=== PATIENT | male | born 1985 | race Caucasian/White ===

== ENCOUNTER → 2024-08-24 | Outpatient (CLI) | payer OTHER ==
[2024-08-24 15:23] LABS: BASO % 0.8 % (0.0-1.0); EOS # 0.2 10^3/uL (0.0-0.5); HEMATOCRIT 32.9 % (42.0-52.0); LYMPH # 1.3 10^3/uL (1.5-5.0); LYMPH % 34.4 % (24.0-44.0); MEAN CORPUSCULAR HGB CONC 33.4 g/dl (32.0-36.5); MEAN CORPUSCULAR VOLUME 95.6 fl (80.0-96.0); MONO # 0.3 10^3/uL (0.0-0.8); NEUTROPHILS # 1.8 10^3/uL (1.5-8.5); NEUTROPHILS % 48.7 % (36.0-66.0); PLATELET COUNT, AUTOMATED 213 10^3/uL (150-450); RED BLOOD COUNT 3.44 10^6/uL (4.30-6.10); WHITE BLOOD COUNT 3.7 10^3/uL (4.0-10.0)
[2024-08-24 15:50] LABS: ALBUMIN 4.1 G/DL (3.2-5.2); ALKALINE PHOSPHATASE 141 U/L (40-129); ALT/SGPT 84 U/L (7.0-40); AST/SGOT 30 U/L (<34); BILIRUBIN,DIRECT 0.6 MG/DL (<0.4); BILIRUBIN,TOTAL 1.5 MG/DL (0.3-1.2); IRON (FE) 72 UG/DL (65-175); TOTAL PROTEIN 7.9 G/DL (5.7-8.2)
[2024-08-24 15:51] LABS: FERRITIN 270.5 NG/ML (10.5-307.3); IMMUNOGLOBULIN G 1545 MG/DL (650-1600)
[2024-08-24 15:52] LABS: HEPATITIS B SURFACE ANTIBODY POSITIVE (POSITIVE)
[2024-08-24 16:25] LABS: HEPATITIS B CORE ANTIBODY IGM NEGATIVE (NEGATIVE)
[2024-08-24 20:48] LABS: HIV 1&2 SCREEN REACTIVE (NEGATIVE)
[2024-08-26 11:17] LABS: ALPHA 1 ANTITRYPSIN 156 mg/dL (83-199)
[2024-08-26 13:12] LABS: HEPATITIS B CORE ANTIBODY IGG REACTIVE (NON-REACTIVE)
[2024-08-29 14:18] LABS: HIV 1 AB POSITIVE (NEGATIVE); HIV 2 AB NEGATIVE (NEGATIVE); HIV AG/AB, 4TH GEN REPEATEDLY REACTIVE (NON-REACTIVE)
== END ==
LOC: M PLALAB 11:40
PROVIDERS: ATTEND Internal Medicine Hematology
DX: D58.1 Hereditary elliptocytosis (principal)

== ENCOUNTER → 2024-08-25 | Outpatient (REF) | payer OTHER | LOC: M SFHCPLAZ 12:09 | PROVIDERS: ATTEND Internal Medicine Hematology | DX: Z53.9 Procedure and treatment not carried out, unspecified reason (principal) ==

== ENCOUNTER → 2024-09-01 | Outpatient (CLI) | payer OTHER ==
[2024-09-01 13:05] LABS: APPEARANCE, URINE CLEAR (CLEAR); BACTERIA, URINE AUTO NEGATIVE (NEGATIVE); BILIRUBIN, URINE AUTO NEGATIVE (NEGATIVE); BLOOD, URINE BLOOD NEGATIVE (NEGATIVE); COLOR, URINE AMBER (YELLOW); GLUCOSE, URINE (UA) AUTO NEGATIVE (NEGATIVE); KETONE, URINE AUTO NEGATIVE (NEGATIVE); LEUKOCYTE ESTERASE, URINE AUTO NEGATIVE (NEGATIVE); MUCUS, URINE SMALL (NEGATIVE); NITRITE, URINE AUTO NEGATIVE (NEGATIVE); PROTEIN, URINE AUTO NEGATIVE (NEGATIVE); RBC, URINE AUTO 0 /HPF (0-3); SPECIFIC GRAVITY URINE AUTO 1.023 (1.002-1.035); SQUAMOUS EPITHELIAL CELL UR AU 3 /HPF (0-6); WBC, URINE AUTO 1 /HPF (0-3)
[2024-09-01 13:10] LABS: ALBUMIN 4.1 G/DL (3.2-5.2); ALKALINE PHOSPHATASE 130 U/L (40-129); ALT/SGPT 59 U/L (7.0-40); AST/SGOT 27 U/L (<34); BILIRUBIN,TOTAL 1.9 MG/DL (0.3-1.2); BLOOD UREA NITROGEN 15 MG/DL (9-23); CALCIUM LEVEL 9.7 MG/DL (8.5-10.1); CARBON DIOXIDE LEVEL 30 MMOL/L (20-31); CHLORIDE LEVEL 107 MMOL/L (98-107); CREATININE FOR GFR 0.73 MG/DL (0.70-1.30); GLOMERULAR FILTRATION RATE > 60.0 (>60); GLUCOSE, FASTING 77 MG/DL (60-100); SODIUM LEVEL 142 MMOL/L (136-145); TOTAL PROTEIN 7.9 G/DL (5.7-8.2)
[2024-09-01 13:25] LABS: HEPATITIS B SURFACE ANTIGEN NEGATIVE (NEGATIVE)
[2024-09-01 14:41] LABS: GC DNA AMPLIFICATION NEGATIVE (NEGATIVE)
[2024-09-02 12:16] LABS: HEPATITIS A IgG TOTAL REACTIVE (NON-REACTIVE)
[2024-09-02 16:11] LABS: % CD4+ LYMPHS 21.8 % (30.8-58.5); ABSOLUTE CD4 HELPER 283 /uL (359-1519); BASOPHILS 1 % (Not Estab.); COMMENTS FOR T-CELL CD4 Note: (.); EOSINOPHILS 5 % (Not Estab.); EOSINOPHILS ABSOLUTE 0.2 x10E3/uL (0.0-0.4); HCT 32.1 % (37.5-51.0); HGB 11.5 g/dL (13.0-17.7); LYMPHOCYTES 36 % (Not Estab.); LYMPHOCYTES ABSOLUTE 1.3 x10E3/uL (0.7-3.1); MCHC 35.8 g/dL (31.5-35.7); MCV 92 fL (79-97); MONOCYTES 7 % (Not Estab.); MONOCYTES ABSOLUTE 0.3 x10E3/uL (0.1-0.9); NEUTROPHILS 50 % (Not Estab.); NEUTROPHILS ABSOLUTE 1.9 x10E3/uL (1.4-7.0); PLT 225 x10E3/uL (150-450); RBC 3.49 x10E6/uL (4.14-5.80); RDW 19.7 % (11.6-15.4); WBC 3.7 x10E3/uL (3.4-10.8)
[2024-09-05 10:57] LABS: HIV-1 RNA PCR QUANT 2 210000 copies/mL (NOT DETECTED); HIV-1 RNA PCR QUANT 3 5.32 (NOT DETECTED)
== END ==
LOC: M PLALAB 10:54
PROVIDERS: ATTEND Internal Medicine Infectious Disease
DX: B20 Human immunodeficiency virus [HIV] disease (principal)

== ENCOUNTER → 2024-10-04 | Outpatient (CLI) | payer OTHER ==
[2024-10-04 14:45] LABS: GC DNA AMPLIFICATION NEGATIVE (NEGATIVE)
[2024-10-04 15:06] LABS: ALBUMIN 4.3 G/DL (3.2-5.2); ALKALINE PHOSPHATASE 116 U/L (40-129); ALT/SGPT 154 U/L (7.0-40); AST/SGOT 67 U/L (<34); BLOOD UREA NITROGEN 20 MG/DL (9-23); CALCIUM LEVEL 9.8 MG/DL (8.5-10.1); CARBON DIOXIDE LEVEL 30 MMOL/L (20-31); CHLORIDE LEVEL 104 MMOL/L (98-107); CREATININE FOR GFR 0.88 MG/DL (0.70-1.30); GLOMERULAR FILTRATION RATE > 60.0 (>60); GLUCOSE, FASTING 84 MG/DL (60-100); POTASSIUM SERUM 4.7 MMOL/L (3.5-5.1); SODIUM LEVEL 139 MMOL/L (136-145); TOTAL PROTEIN 8.3 G/DL (5.7-8.2)
[2024-10-05 14:08] LABS: % CD4+ LYMPHS 22.7 % (30.8-58.5); ABSOLUTE CD4 HELPER 363 /uL (359-1519); BASOPHILS 1 % (Not Estab.); EOSINOPHILS 3 % (Not Estab.); EOSINOPHILS ABSOLUTE 0.1 x10E3/uL (0.0-0.4); HCT 31.6 % (37.5-51.0); HGB 10.9 g/dL (13.0-17.7); LYMPHOCYTES 37 % (Not Estab.); LYMPHOCYTES ABSOLUTE 1.6 x10E3/uL (0.7-3.1); MCH 31.9 pg (26.6-33.0); MCHC 34.5 g/dL (31.5-35.7); MCV 92 fL (79-97); MONOCYTES 10 % (Not Estab.); MONOCYTES ABSOLUTE 0.4 x10E3/uL (0.1-0.9); NEUTROPHILS 48 % (Not Estab.); NEUTROPHILS ABSOLUTE 2.1 x10E3/uL (1.4-7.0); PLT 263 x10E3/uL (150-450); RBC 3.42 x10E6/uL (4.14-5.80); RDW 19.7 % (11.6-15.4); WBC 4.3 x10E3/uL (3.4-10.8)
[2024-10-06 11:16] LABS: HIV-1 RNA PCR QUANT 3 1.7 (NOT DETECTED)
== END ==
LOC: M PLALAB 11:29
PROVIDERS: ATTEND Internal Medicine Infectious Disease
DX: B20 Human immunodeficiency virus [HIV] disease (principal)

== ENCOUNTER → 2024-10-06 | Outpatient (CLI) | payer OTHER | LOC: M RAD 10:16 | PROVIDERS: ATTEND Internal Medicine Hematology | DX: D58.1 Hereditary elliptocytosis (principal); R16.1 Splenomegaly, not elsewhere classified; K80.20 Calculus of gallbladder without cholecystitis without obstruction ==

== ENCOUNTER → 2024-12-28 | Outpatient (CLI) | payer OTHER ==
[~2024-12-28] MED LIST: PROHANCE 279.3MG/ML 15ML VIAL ONE
== END ==
LOC: M PLAIMG 07:26
PROVIDERS: ATTEND Otolaryngology
DX: R43.0 Anosmia (principal); J32.0 Chronic maxillary sinusitis